=== PATIENT | female | born 1940 | race African-American/Black ===

== ENCOUNTER 2022-09-15 14:51 | Inpatient (IN) | payer MEDICARE, MEDICAID ==
[~2022-09-15] VITALS: Ht 157.5 cm; Wt 44.5 kg
[~2022-09-15 14:51] MED LIST: BENA40TA8 PO; DONE5TAB80 PO; HAL5T PO; MEM5T PO
[2022-09-15 20:24] LABS: Eosinophils # (auto) 0.2 10 ^3/uL (0-0.8); Mean Corpuscular Hemoglobin 25.6 pg (28.0-32.0); Monocytes # (auto) 0.3 10 ^3/uL (0-1.3)
[2022-09-15 20:26] LABS: Basophils # (auto) 0 10 ^3/uL (0-0.2); Basophils % (auto) 0.6 % (0.0-2.0); Eosinophils % (auto) 3.2 % (0.0-7.0); Hematocrit 36.5 % (36.0-46.0); Hemoglobin 11.4 g/dL (12.2-16.2); Lymphocytes # (auto) 1.1 10 ^3/uL (0.4-5.4); Lymphocytes % (auto) 21.2 % (10.0-50.0); Mean Corpuscular Hgb Conc. 31.2 g/dL (32.0-36.0); Mean Corpuscular Volume 81.9 fL (80.0-100.0); Monocytes % (auto) 6.3 % (0.0-12.0); Neutrophils # (auto) 3.5 10 ^3/uL (1.6-8.6); Neutrophils % (auto) 68.7 % (37.0-80.0); Red Blood Cells 4.46 10^6/uL (4.0-5.20); Red Cell Distribution Width 17.8 % (11.8-14.3)
[2022-09-15 20:30] LABS: Albumin 2.3 g/dL (3.4-5.0); BUN/Creatinine Ratio 28.9; Calcium 8.4 mg/dL (8.5-10.1); Potassium 4.4 mmol/L (3.5-5.1)
[2022-09-15 20:33] LABS: Bilirubin, Total 0.3 mg/dL (0.2-1.0); Total Protein 6.7 g/dL (6.4-8.2)
[2022-09-15 20:44] LABS: INR 0.95 (0.9-1.15); Partial Thromboplastin Time 23.9 sec (24.6-33.4)
[2022-09-15] MEDS ORDERED: NITROGLYCERIN 0.4 MG SL TAB SL PRN (20:45)
[2022-09-15] MEDS ORDERED: MORPHINE SULFATE INJ 2 MG/ml SYRG IV PRN (20:45)
[2022-09-15] MEDS ORDERED: HEPARIN SODIUM (PORCINE) 5000 UNITS/ML 1ML VIAL IV ONE (20:45)
[2022-09-15] MEDS ORDERED: HEPARIN DRIP/D5W 100UNITS/ML 250 ML IV SCH (21:00)
[2022-09-15] MEDS ORDERED: IOHEXOL 350 MG/ML 100ML IJ ONE (21:16)
[2022-09-15 21:34] LABS: Cholesterol 181 mg/dL (< 200)
[2022-09-15 21:37] LABS: HDL Cholesterol 63 mg/dL (40-59); LDL Cholesterol 117 mg/dL (< 100); Triglycerides 108 mg/dL (< 150)
[2022-09-15] MEDS: SODIUM CHLORIDE 0.9% 1,000 ML IV SCH (21:53)
[2022-09-16 04:19] LABS: Basophils # (auto) 0 10 ^3/uL (0-0.2); Basophils % (auto) 0.6 % (0.0-2.0); Eosinophils # (auto) 0.4 10 ^3/uL (0-0.8); Eosinophils % (auto) 6.7 % (0.0-7.0); Hematocrit 29.4 % (36.0-46.0); Hemoglobin 9.7 g/dL (12.2-16.2); Lymphocytes # (auto) 1.8 10 ^3/uL (0.4-5.4); Lymphocytes % (auto) 31.7 % (10.0-50.0); Mean Corpuscular Hemoglobin 26.2 pg (28.0-32.0); Mean Corpuscular Hgb Conc. 32.9 g/dL (32.0-36.0); Mean Corpuscular Volume 79.7 fL (80.0-100.0); Monocytes # (auto) 0.4 10 ^3/uL (0-1.3); Monocytes % (auto) 7.8 % (0.0-12.0); Neutrophils % (auto) 53.2 % (37.0-80.0); Nucleated Red Blood Cells % 0.1 %; Red Blood Cells 3.69 10^6/uL (4.0-5.20); Red Cell Distribution Width 17.5 % (11.8-14.3); White Blood Cell 5.6 10^3/uL (4.4-10.8)
[2022-09-16 04:26] LABS: Albumin 1.9 g/dL (3.4-5.0); Calcium 7.9 mg/dL (8.5-10.1); INR 0.97 (0.9-1.15); Partial Thromboplastin Time 59.2 sec (24.6-33.4); Potassium 4.1 mmol/L (3.5-5.1)
[2022-09-16 04:30] LABS: BUN/Creatinine Ratio 29.3; Bilirubin, Total 0.3 mg/dL (0.2-1.0)
[2022-09-16] MEDS: DONEPEZIL HYDROCHLORIDE 5 MG TAB PO SCH (09:28)
[2022-09-16] MEDS: HALOPERIDOL 5 MG TAB PO SCH (09:28)
[2022-09-16] MEDS: BENAZEPRIL HCL 10 MG TAB PO SCH (09:28)
[2022-09-16] MEDS: MEMANTINE HCL 5 MG TAB PO SCH (09:28)
[2022-09-16 10:40] LABS: INR 0.97 (0.9-1.15)
[2022-09-16 10:58] LABS: Partial Thromboplastin Time 121.5 sec (24.6-33.4)
[2022-09-16 12:58] LABS: INR 0.98 (0.9-1.15)
[2022-09-16] MEDS: SODIUM CHLORIDE 0.9% 1,000 ML IV SCH (13:40)
[2022-09-16 16:47] VITALS: BP 164/83
[2022-09-16 19:22] LABS: INR 0.97 (0.9-1.15); Partial Thromboplastin Time 63.5 sec (24.6-33.4)
[2022-09-16] MEDS ORDERED: HEPARIN DRIP/D5W 100UNITS/ML 250 ML IV SCH (20:00)
[2022-09-16 20:10] VITALS: BP 128/90
[2022-09-16 22:00] VITALS: BP 128/90
[2022-09-17] VITALS (7 sets, daily range): BP systolic 107–141; BP diastolic 60–78
[2022-09-17 01:59] LABS: INR 0.97 (0.9-1.15)
[2022-09-17 02:05] LABS: Partial Thromboplastin Time 82.9 sec (24.6-33.4)
[2022-09-17] MEDS: SODIUM CHLORIDE 0.9% 1,000 ML IV SCH ×2 (06:25→23:00)
[2022-09-17 06:34] LABS: INR 0.97 (0.9-1.15); Partial Thromboplastin Time 46.9 sec (24.6-33.4)
[2022-09-17 09:33] LABS: INR 0.98 (0.9-1.15); Partial Thromboplastin Time 59.7 sec (24.6-33.4)
[2022-09-17] MEDS ORDERED: HEPARIN DRIP/D5W 100UNITS/ML 250 ML IV SCH ×2 (10:00→22:30)
[2022-09-17] MEDS: DONEPEZIL HYDROCHLORIDE 5 MG TAB PO SCH (10:53)
[2022-09-17] MEDS: MEMANTINE HCL 5 MG TAB PO SCH (10:53)
[2022-09-17] MEDS: BENAZEPRIL HCL 10 MG TAB PO SCH (10:55)
[2022-09-17] MEDS: HALOPERIDOL 5 MG TAB PO SCH (10:55)
[2022-09-17] MEDS ORDERED: PNEUMOCOCCAL VACC POLYS 25 MCG/0.5 ML VIAL IM ONE (12:00)
[2022-09-17] MEDS: Ensure HIGH Protein Chocolate 8oz Bottle PO SCH ×2 (12:00→19:20)
[2022-09-17] MEDS ORDERED: INFLUENZA QUAD 2022-2023 0.5 ML SYRG IM ONE (12:00)
[2022-09-17 15:23] LABS: INR 0.98 (0.9-1.15); Partial Thromboplastin Time 58.4 sec (24.6-33.4)
[2022-09-17 22:01] LABS: INR 0.99 (0.9-1.15); Partial Thromboplastin Time 37.5 sec (24.6-33.4)
[2022-09-18 05:00] VITALS: BP 122/80
[2022-09-18 05:42] LABS: INR 1.01 (0.9-1.15)
[2022-09-18 06:07] LABS: Partial Thromboplastin Time 77.5 sec (24.6-33.4)
[2022-09-18 08:00] VITALS: BP 128/70
[2022-09-18] MEDS ORDERED: HEPARIN DRIP/D5W 100UNITS/ML 250 ML IV SCH (08:45)
[2022-09-18 08:48] LABS: Basophils # (auto) 0 10 ^3/uL (0-0.2); Lymphocytes # (auto) 1.7 10 ^3/uL (0.4-5.4)
[2022-09-18 08:50] LABS: Basophils % (auto) 0.8 % (0.0-2.0); Eosinophils # (auto) 0.2 10 ^3/uL (0-0.8); Eosinophils % (auto) 5.6 % (0.0-7.0); Hematocrit 31.2 % (36.0-46.0); Hemoglobin 10.1 g/dL (12.2-16.2); Lymphocytes % (auto) 37.6 % (10.0-50.0); Mean Corpuscular Hemoglobin 26.3 pg (28.0-32.0); Mean Corpuscular Hgb Conc. 32.2 g/dL (32.0-36.0); Mean Corpuscular Volume 81.6 fL (80.0-100.0); Monocytes # (auto) 0.3 10 ^3/uL (0-1.3); Monocytes % (auto) 7.2 % (0.0-12.0); Neutrophils # (auto) 2.2 10 ^3/uL (1.6-8.6); Neutrophils % (auto) 48.8 % (37.0-80.0); Red Blood Cells 3.82 10^6/uL (4.0-5.20); Red Cell Distribution Width 17.5 % (11.8-14.3); White Blood Cell 4.5 10^3/uL (4.4-10.8)
[2022-09-18 09:00] VITALS: BP 128/70
[2022-09-18] MEDS: Ensure HIGH Protein Chocolate 8oz Bottle PO SCH ×2 (09:37→12:04)
[2022-09-18] MEDS: MEMANTINE HCL 5 MG TAB PO SCH (09:59)
[2022-09-18] MEDS ORDERED: APIXABAN 5 MG TAB PO SCH (10:00)
[2022-09-18] MEDS: HALOPERIDOL 5 MG TAB PO SCH (10:00)
[2022-09-18] MEDS: BENAZEPRIL HCL 10 MG TAB PO SCH (10:01)
[2022-09-18] MEDS: DONEPEZIL HYDROCHLORIDE 5 MG TAB PO SCH (10:01)
[2022-09-18 13:00] VITALS: BP 141/77
[2022-09-18] MEDS: SODIUM CHLORIDE 0.9% 1,000 ML IV SCH (15:40)
[2022-09-18 16:00] VITALS: BP 141/70
[2022-09-18 17:00] VITALS: BP 138/90
== END 2022-09-18 16:42 | DRG 299 ==
LOC: ER 14:51 → TELE 20:46 → TELE-CENTR 09-16 15:06
PROVIDERS: ADMIT Registered Nurse; ATTEND Family Medicine
DX: I82.622 Acute embolism and thrombosis of deep veins of left upper extremity (principal); E43 Unspecified severe protein-calorie malnutrition; I50.32 Chronic diastolic (congestive) heart failure; Z68.1 Body mass index [BMI] 19.9 or less, adult; I11.0 Hypertensive heart disease with heart failure; F03.90 Unspecified dementia, unspecified severity, without behavioral disturbance, psychotic disturbance, mood disturbance, and anxiety; R73.03 Prediabetes; Z20.822 Contact with and (suspected) exposure to COVID-19; D64.9 Anemia, unspecified; E78.5 Hyperlipidemia, unspecified; Z86.718 Personal history of other venous thrombosis and embolism; Z86.73 Personal history of transient ischemic attack (TIA), and cerebral infarction without residual deficits; Z74.01 Bed confinement status
CPT/HCPCS: 36415; 71275; 80053; 80061; 83036; 84484; 85025; 85610; 85730; 87426; 93005; 93971; 96361; 96365; 96376; 97163; G0378